=== PATIENT | female | born 1940 ===

== ENCOUNTER 2022-04-27 10:58 | Day surgery (SDC) | payer MEDICARE, BC, SELFPAY ==
[2022-04-27 11:19] VITALS: BP 173/82; PULSE 59; RESP 18; TEMP 36.9; O2SAT 99
--- NOTE | 2022-04-27 11:54 | W.ANESPRE ---
General Info Date of Service Date Performed: 04/27/22 Height: 5 ft 3 in Weight: 61.5 kg Body Mass Index (BMI): 24.0 Surgical Procedure: Operation Date: 04/27/22 14:40 Proposed Procedure Side Surgeon p Cataract Extraction with IOL Implant Right Darrell Mina MD Meds Allergies and Home Medications Allergies Allergy/AdvReac Type Severity Reaction Status Date / Time grass pollen Allergy Unknown Verified 04/27/22 11:50 pseudoephedrine Allergy Unknown Verified 04/27/22 11:50 sulfamethoxazole AdvReac Intermediate vomiting Verified 04/27/22 11:50 [From Sulfamethoxazole-Trimethoprim] trimethoprim AdvReac Intermediate vomiting Verified 04/27/22 11:50 [From Sulfamethoxazole-Trimethoprim] Home Medication Medication Instructions Recorded L.acidophilus,rhamnosus-B.breve-S.thermophilus 1 tab PO DAILY 04/23/22 3 billion cell chew tab fexofenadine 60 mg-pseudoephedrine 1 tab PO DAILY 04/23/22 ER 120 mg tablet,ext.release,12 hr (Myrna-D 12 Hour) fluticasone propionate 50 1 spray intranasal DAILY 04/23/22 mcg/actuation nasal spray,suspension iron 40 mg capsule 80 mg PO DAILY 04/23/22 ketotifen fumarate 0.025 % (0.035 1 drp ophthalmic (eye) PRN PRN 04/23/22 %) eye drops (Alaway) losartan 100 mg tablet 100 mg PO DAILY 04/23/22 metoprolol succinate 25 mg 25 mg PO DAILY 04/23/22 tablet,extended release 24 hr Current Visit Medications: Current Medications Generic Name Dose Route Start Last Admin Trade Name Freq PRN Reason Stop Dose Admin Acetaminophen 1,000 mg 04/27/22 06:00 Acetaminophen 500 Mg Tab PO 04/27/22 16:00 Q4H PRN PRN Miscellaneous Medication 0 ml 04/27/22 06:00 Prednisolone 1%, Moxifloxacin 0.5%, Nepafenac 0.1% 5ml Btl OD 04/27/22 16:00 DIRECTED [facility] Miscellaneous Medication 0 ml 04/27/22 06:00 Tropicam./Phenyleph. 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 Medical History Medical History Anemia Basal cell carcinoma Ta's palsy Left side of face Cataract External hemorrhoids Hypertensive disorder Seasonal allergies Surgical History Surgical History H/O basal cell carcinoma excision History of colonoscopy History of esophagogastroduodenoscopy (EGD) History of hysterectomy History of shoulder replacement History of surgery surgery on eyelid History of total knee replacement Hx of tonsillectomy Tobacco Smoking/Tobacco Use Status: Never Alcohol Alcohol Intake: former Substance Use Substance use: Never Substance use type: does not use Vital Signs and Lab Results Vital Signs Most Recent Vital Signs in EMR: Most Recent Vital Signs Temp Pulse Resp BP Pulse Ox 36.9 C 59 L 18 173/82 H 99 04/27/22 11:19 04/27/22 11:19 04/27/22 11:19 04/27/22 11:19 04/27/22 11:19 Lab Results Blood Type / Crossmatch: No Data to Display Complete Blood Count: No Data to Display Complete Metabolic Panel: No Data to Display Liver Function Panel: No Data to Display Coagulation Panel: No Data to Display Cardiac Panel: No Data to Display Arterial Blood Gas: No Data to Display Venous Blood Gas: No Data to Display Pancreas Panel: No Data to Display Thyroid Panel: No Data to Display Infectious Disease: No Data to Display Blood Cultures: No Data to Display Toxicology Panel: No Data to Display Anesthesia Assessment and Plan Anesthesia History Personal History: No History of Anesthesia Complications Family History: No Family History of Anesthesia Complications Exercise Tolerance Exercise Tolerance: Metabolic Equivalents>4 Pertinent Negatives Pertinent Negatives: No Symptoms of GERD Cardiac & Pulmonary Exam Cardiac Exam: Normal S1/S2 Heart Sounds Pulmonary Exam: Clear Bilateral Breath Sounds Implantable Cardiac Device Does patient have a Pacemaker or an ICD?: No Airway Exam Known Difficult Airway: No Mallampati Class: 1 Mouth Opening: Normal (> 3cm) Thyromental Distance: Greater than 3 cm Neck Range of Motion: Full ROM Neck Circumference: Normal Teeth Condition: Normal Dentition ASA Classification ASA Score: ASA 2 Emergency Case?: No NPO Status NPO Status: NPO Clears >2 hours, Solids >8 hours Anesthesia Plan Resuscitation Status: Full Code Anesthesia Technique: MAC Anesthesia Airway Planned: Natural Airway Monitors Used: Standard Monitors Preoperative Comments:: Ta?s palsy with left facial droop and eye droop.
[2022-04-27] MEDS: Tropicam./Phenyleph. (1/2.5%) 5 ML BTL OD ×3 (11:55→12:06)
[2022-04-27 11:56] VITALS: BMI 24.0
[2022-04-27] MEDS: Tetracaine 0.5% 4 ML BTL OD (12:30)
[2022-04-27] MEDS: Lidocaine 2% Jelly 6 ML SYR (12:30)
[2022-04-27] MEDS: Duovisc Viscoelastic System EACH 1 EACH (12:40)
[2022-04-27] MEDS: Balanced Salt Soln.-PLUS 500 ML BAG (12:40)
[2022-04-27] MEDS: Povidone-Iodine Ophth 30 ML BTL (12:42)
[2022-04-27 12:56] VITALS: BP 165/87; PULSE 52; RESP 16; TEMP 36.3; O2SAT 99
--- NOTE | 2022-04-27 12:57 | W.PM.DSUDISC ---
Discharge Plan Disposition Patient Disposition: HOME Condition: Good Discharge Details Attending Provider: Darrell Mina Primary Care Provider: Unknown,Unknown Home Meds and New Rx's Prescriptions: No Action ketotifen fumarate [Alaway] 0.025 % (0.035 %) Drops 1 drp OPHTHALMIC (EYE) PRN PRN Rx Instructions: administer at least 8 hours apart metoprolol succinate 25 mg Tablet Extended Release 24 Hr 25 mg PO DAILY losartan 100 mg Tablet 100 mg PO DAILY fexofenadine-pseudoephedrine [Myrna-D 12 Hour] 60-120 mg Tablet Extended Release 12 Hr 1 tab PO DAILY fluticasone propionate 50 mcg/actuation [place],Suspension 1 spray INTRANASAL DAILY Rx Instructions: administer into each nostril iron 40 mg Capsule 80 mg PO DAILY Probiotic 3 billion cell Tablet,Chewable 1 tab PO DAILY Discharge Instructions Stand Alone Forms: Post-op Topical Cataract, Grace Reyes (DSU) Discharge Orders Discharge Orders: Discharge Order (Routine); Ordered 04/27/22 Ordered By: Darrell Mina DS: Diagnosis Discharge Diagnosis (1) Nuclear sclerotic cataract of right eye: Status: Resolved (2) Cortical cataract of right eye: Status: Resolved
--- NOTE | 2022-04-27 12:58 | W.PM.OP ---
Date of service: 04/27/22 Time of Service: 11:58 Operative Note Operative Note DATE OF PROCEDURE: 04/27/22 PRE-OP DIAGNOSIS: Nuclear/cortical cataract, right eye POST-OP DIAGNOSIS: same PROCEDURE: Cataract extraction using phacoemulsification with intraocular lens implant, right eye SURGEON: Darrell Mina ANESTHESIA TYPE: Local By Surgeon and MAC Refer to Anesthesia Record ESTIMATED BLOOD LOSS: 0 PATHOLOGY: none sent COMPLICATIONS: None Patient was transported to: same day Patient's condition: stable Implants: [employer]/JOSE Tecnis [id number] Indications: Progressive visual loss due to cataract, right eye Procedure Description: CATARACT SURGERY OPERATIVE REPORT PREOPERATIVE DIAGNOSIS: 1. Nuclear/cortical cataract, right eye POSTOPERATIVE DIAGNOSIS: Same OPERATION: 1. Cataract extraction using phacoemulsification with posterior chamber intraocular lens implant, right eye. IOL: IOL Returned Goods Sorter/Model: [employer] / JOSE [employer]ecnis [id number] IOL Power: + 21.5 diopters IOL Serial Number: [id number] Optic Diameter: 6.0mm Haptic/Overall Diameter: 13.0mm PHACO INFO: [employer] Vision System with OZil and Active [employer]uidics Cumulative Dispersed Energy (CDE): 8.77 seconds SURGEON: Darrell Mina MD, CARLOS ANESTHESIA: Monitored Anesthesia Care (MAC), with local sub-tenon's anesthetic infiltration COMPLICATIONS: None SPECIMENS: None INDICATIONS FOR PROCEDURE: The patient is an 81-year-old lady with history of diminished visual acuity in both eyes secondary to the development of bilateral nuclear/cortical cataract. She is significantly symptomatic in her right eye that she desires cataract surgery and attempt to improve and maximize her vision. She desires a mildly myopic result so she can function around her house without glasses. Postoperative refractive target is approximately -1.75 diopters. PROCEDURE: The correct surgical eye was identified and marked as the right eye and the pupil was dilated in the preoperative area using mydriatics and cycloplegics. The dilated pupil size was 7.0 mm. She elected to proceed without oral sedation. The patient was brought to the operating room where cardiopulmonary monitoring was instituted and surgical time-out was performed, confirming the correct operative eye and IOL power. Topical anesthesia was administered and ophthalmic povidone-iodine 5% was instilled into the conjunctival fornices. Lidocaine gel was applied to the cornea and the brittni-ocular area was prepped with Betadine 10% solution and draped in the usual sterile fashion for intraocular surgery, including an aperture drape. A Tegaderm transparent film dressing was cut in half and used to cover the lashes and lid margins. Care was taken to sequester the lashes and lid margins under the Tegaderm dressing. A lid speculum was placed between the lids of the operative eye and the Gustavo Lux[employer] Revalia operating microscope was maneuvered into position. Kemar scissors were then used to make a conjunctival buttonhole approximately 6mm posterior to the limbus in the inferonasal quadrant. Blunt dissection was carried out to expose bare sclera, and a blunt-tipped sub-tenon?s anesthesia cannula was introduced and passed posteriorly along the globe where non-preserved plain lidocaine was injected into posterior sub-Tenon?s space. A sideport knife was used to make a paracentesis port inferotemporally. Intraocular phenylephrine/lidocaine was injected into the anterior chamber. The anterior chamber was filled with viscoelastic. A 2.4mm keratome knife was used to construct a 2-plane near-clear corneal tunnel extending 2.0mm into clear cornea superiortemporally. A flap was raised on the anterior capsule and capsulorhexis forceps were used to complete a continuous curvilinear capsulorhexis of 5.0 mm. Balanced salt solution was then used to perform cortical cleaving hydrodissection and nuclear hydrodelineation until the lens could be freely rotated within the capsular bag. The lens nucleus was then disassembled and removed within the capsular bag and iris plane using phacoemulsification. Residual cortical material was removed using the I/A handpiece. The posterior capsule was carefully polished to remove as much residual lens epithelial cells as safely possible. The capsular bag was then inflated and the anterior chamber deepened with viscoelastic. The lens implant described above was inserted into the capsular bag using the JOSE Solomon Injector. A Kuglen hook was used to dial the IOL into position. Residual viscoelastic was then removed first from posterior to the IOL, then from the anterior chamber using the I/A handpiece. The lens implant was noted to center nicely within the capsular bag. The incisions were stromally hydrated, and the anterior chamber was reformed using BSS. Then 0.5cc of moxifloxacin 1.0mg/ml were injected into the capsular bag and anterior chamber. The incisions were checked with a Weck spear and found to be secure. Several drops of ophthalmic povidone-iodine 5% were then applied to the eye followed by two drops of Imprimis combination prednisolone/moxifloxacin/nepafenac solution. The drapes were removed and a clear plastic protective eye shield was placed over the eye. The patient was then returned to Same Day Surgery in stable condition.
--- NOTE | 2022-04-27 13:37 | W.ANESPOSTOP ---
Postoperative Evaluation Date, Time and Location Date Performed: 04/27/22 Time Performed: 13:37 Patient Location: Day Surgery Unit Vital Signs Most Recent Imported Vital Signs: Most Recent Vital Signs Temp Pulse Resp BP Pulse Ox 36.3 C L 52 L 16 165/87 H 99 04/27/22 12:56 04/27/22 12:56 04/27/22 12:56 04/27/22 12:56 04/27/22 12:56 Pain Score Most Recent Pain Score: Most Recent Pain Score Pain Level 0 04/27/22 12:56 Assessment Mental Status: Awake (Alert & Oriented to Patient Baseline) Airway and Respiratory Function: Patent airway with normal (patient baseline) respiratory exam Cardiovascular Function: Hemodynamically Stable Hydration Status: Adequately Hydrated Nausea & Vomiting: No Nausea or Vomiting Pain: Pt. Denies Any Pain Peripheral Nerve Block: Patient did not receive a nerve block
== END 2022-04-27 13:32 | disposition home or self-care (01) ==
PROVIDERS: Visit Provider Ophthalmology
PROC: (CPT 66984; principal; 2022-04-27 14:30)
DX: H25.11 Age-related nuclear cataract, right eye (principal); D64.9 Anemia, unspecified; I10 Essential (primary) hypertension
CPT/HCPCS: 66984; V2632